=== PATIENT | male | born 1965 | race Caucasian/White ===

== ENCOUNTER 2020-05-29 18:23 | Emergency (ER) | payer MEDICARE ==
[~2020-05-29] VITALS: Ht 172.7 cm; Wt 88.5 kg
[2020-05-29] MEDS ORDERED: LISINOPRIL30 MG PO (18:37)
[2020-05-29] MEDS ORDERED: AMLODIPINE BESY10 MG PO (18:37)
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
== END 2020-05-29 20:38 | disposition home or self-care (01) ==
LOC: ED 18:23
DX: S01.01XA Laceration without foreign body of scalp, initial encounter (principal); W22.8XXA Striking against or struck by other objects, initial encounter; I10 Essential (primary) hypertension; J44.9 Chronic obstructive pulmonary disease, unspecified; F17.200 Nicotine dependence, unspecified, uncomplicated; Z88.0 Allergy status to penicillin; Z79.899 Other long term (current) drug therapy
CPT/HCPCS: 12002; 70450; 99284-25; A9270

== ENCOUNTER 2023-10-06 09:00 | Inpatient (IN) | payer MEDICARE, MEDICAID ==
[2023-10-06] VITALS (36 sets, daily range): BP systolic 146–203; BP diastolic 65–141
[~2023-10-06] VITALS: Ht 172.7 cm; Wt 84.4 kg
[~2023-10-06 09:00] MED LIST: AMLODIPINE BESY10 MG PO; LISINOPRIL30 MG PO
[2023-10-06] MEDS ORDERED: fentaNYL citrate 100 MCG/2 ML VIAL IV PRN (09:15)
[2023-10-06] MEDS ORDERED: NICARDIPINE HCL IV SCH (09:30)
[2023-10-06] MEDS ORDERED: DEXTROSE 5% IV SCH (09:30)
[2023-10-06 09:46] LABS: HEMATOCRIT 44.6 % (35.0-50.0); HEMOGLOBIN 14.5 g/dL (12.0-18.0); INR 0.94 (0.80-1.30); MCH 30.6 (27-36); MCHC 32.4 g/dl (30-36); MCV 94.5 fl (81-99); PLATELET COUNT 389 K/uL (140-440); PROTIME 12.2 Sec (11.2-14.2); RBC 4.72 M/ul (4.3-5.7)
[2023-10-06 09:48] LABS: PARTIAL THROMBOPLASTIN TIME 27.4 Sec (22.9-41.3)
[2023-10-06 09:51] LABS: ALBUMIN 3.3 g/dL (3.4-5.0); ALBUMIN/GLOBULIN RATIO 0.8 (1.1-2.4); ANION GAP 10.9 (7-21); BILIRUBIN, TOTAL 0.3 ng/dL (0.2-1.0); BUN/CREATININE RATIO 9.92 (6.0-28.6); CREATININE, SERUM 1.31 mg/dL (0.70-1.30); POTASSIUM 3.9 mmol/L (3.5-5.1); PROTEIN, TOTAL 7.4 g/dL (6.4-8.2)
[2023-10-06 09:59] LABS: EOSINOPHILS, MANUAL DIFF 1; LYMPHOCYTES, MANUAL DIFF 21; MONOCYTES, MANUAL DIFF 9; NEUTROPHILS, MANUAL DIFF 69
[2023-10-06 10:08] LABS: BILIRUBIN, URINE NEGATIVE (negative); BLOOD/HGB, URINE NEGATIVE (Negative); KETONE, URINE NEGATIVE (Negative); LEUK ESTERASE, URINE NEGATIVE (negative); NITRITE, URINE NEGATIVE (negative); PH, URINE 6.5 (5-7)
[2023-10-06] MEDS ORDERED: AMLODIPINE BESYLATE 10 MG TAB PO SCH (10:33)
[2023-10-06] MEDS ORDERED: lisinopriL 10 MG TAB PO SCH (10:33)
[2023-10-06 10:44] LABS: AMPHETAMINES, URINE POSITIVE (NEGATIVE); BARBITURATES, URINE NEGATIVE (NEGATIVE); BENZODIAZEPINE, URINE NEGATIVE (NEGATIVE); BUPRENORPHINE, URINE NEGATIVE (NEGATIVE); CANNABINOID, URINE NEGATIVE (NEGATIVE); COCAINE, URINE NEGATIVE (NEGATIVE); ECSTASY, URINE NEGATIVE (NEGATIVE); FENTANYL, URINE NEGATIVE (NEGATIVE); METHADONE, URINE NEGATIVE (NEGATIVE); OPIATES, URINE NEGATIVE (NEGATIVE); OXYCODONE, URINE NEGATIVE (NEGATIVE); PHENCYCLIDINE, URINE NEGATIVE (NEGATIVE)
--- NOTE | 2023-10-06 10:55 | NUR ---
57 YEAR OLD MALE PATIENT ADMITTED TO CCU FROM ED VIA STRETCHER UNDER DR. EDWARDS WITH DX OF HTN URGENCY. UPON ADMIT TO CCU IS AWAKE AND ALERT, COOPERATIVE,FOLLOWING COMMANDS W/O DELAY. NICARDIPINE GTT INFUSING AT 5 MG/HR. WILL TITRATE ACCORDING TO DR. EDWARDS V.O. HE WOULD LIKE THE SYSTOLIC BP AROUNG 160. PATIENT STATES [place] HAD [place]ST [place] AND WAS H[facility] AT [facility]. PATEINT ADMITS TO LAST USING METH APPROX 4 DAYS AGO. PATIENT IS ANXIOUS AND EMOTIONL AT THIS TIME. CT SCAN THAT WAS DONE EARLIER WAS NEGATIVE FOR A STROKE AT THIS ADMISSION. REPORT RECEIVED FROM ED RN. ADMISSION PROCESS STARTED.
[2023-10-06] MEDS ORDERED: LORazepam 2 MG/ML VIAL IV PRN (11:00)
[2023-10-06] MEDS ORDERED: ondansetron HCL 4 MG/2 ML VIAL IV PRN (11:00)
[2023-10-06] MEDS ORDERED: KETOROLAC TROMETHAMINE 30 MG/ML VIAL IV PRN (11:00)
--- NOTE | 2023-10-06 11:30 | NUR ---
TORADOL 30 MG IV GIVEN FOR KRUGER.
--- NOTE | 2023-10-06 11:37 | NUR ---
PT AND FAMILY REQUESTED PASTORAL CARE UPON ADMISSION. PT APPEARED ANXIOUS DID FAMILY; EXPRESSED CONCERN AND ANXIETY. LISTENED EMPATHETICALLY; PROVIDED SUPPORTIVE PRESENCE; PROVIDED ANXIETY CONTAINMENT; PROVIDED PRAYER. PT AND FAMILY EXPRESSED CATHARTIC EMOTIONS; TEARFUL BUT INDICATED MI. WILL FOLLOW NEEDED.
[2023-10-06] MEDS ORDERED: diphenhydrAMINE HCL 50 MG/ML VIAL ONE (11:52)
[2023-10-06] MEDS ORDERED: diphenhydrAMINE HCL 50 MG/ML VIAL IV ONE (12:00)
[2023-10-06] MEDS ORDERED: NICOTINE 21 MG/24 HR 1 EA TDSY TD SCH (12:00)
[2023-10-06] MEDS ORDERED: PHARMACY RENAL DOSE ADJUSTMENT 1 DOSE MISC PO SCH ×2 (12:00)
--- NOTE | 2023-10-06 12:00 | NUR ---
SEE FLOW SHEET FOR TITRATION ON NICARPINE GTT. PO MEDS (LISINOPRIL AND NORAVAC GIVEN).
--- NOTE | 2023-10-06 12:05 | NUR ---
WHENN DR. EDWARDS IN ROOM, HE GAVE ME A VERAL ORDER TO GIVEN BENADRYL 25 MG IV ONCE, THIS DONE.
--- NOTE | 2023-10-06 12:30 | NUR ---
SITTING UP IN BED FOR LUNCH.
--- NOTE | 2023-10-06 13:15 | NUR ---
NAPPING. NO DISTRESS NOTED. REMAINS ON NICARDIPINE GTT.
--- NOTE | 2023-10-06 14:33 | NUR ---
HAS BEEN VOIDING TO URINAL FREQUENTY. APPROX 150-200 ML AT A TIME. TOTAL U/O O0VER THE SINCE ADMIT TO MZB=0250. O2 VIA NC APPLIED AT 2 L, WITH SLEEP, O2 SAT<90. PATIENT HAS BEEN SLEEPING SINCE FINISHED WITH LUNCH, WAKES BREIFLY TO URINATE. NICARDIPINE GTT AT 2.5 MG/HR.
--- NOTE | 2023-10-06 15:22 | NUR ---
NICARDIPINE GTT OFF AT THIS TIME, THIS DONE PER DR. EDWARDS'S REQUEST.
--- NOTE | 2023-10-06 16:00 | NUR ---
ASSESSMENT DONE. SKIN REMAINS FLUSHED. C/O KRUGER. NICARDIPINE GTT REMAINS OFF. SEVERAL FAMILY MEMBERS ARE IN ROOM.
--- NOTE | 2023-10-06 16:20 | NUR ---
PATIENT C/O INCREASE KRUGER PAIN. DR. EDWARDS NOTIFIED. TYLENOL 650 Q 6 HRS ORDERED. WILL GIVE THIS WHEN ORDER VARIFIED.
[2023-10-06] MEDS ORDERED: ACETAMINOPHEN 325 MG TAB PO PRN (16:30)
--- NOTE | 2023-10-06 17:10 | NUR ---
MED REC COMPLETE
--- NOTE | 2023-10-06 17:30 | NUR ---
TOOK DINNER WELL. DENIES NAUSEA. WILL CONTINUE TO MONITOR BP, WILL RESTART NICARDIPINE GTT PRN.
--- NOTE | 2023-10-06 19:02 | NUR ---
DR. EDWARDS UPDATED ON PATIENT BP, DR. EDWARDS SAIND TO RESTART THE NICARDIPINE IF SYSTOIC BP > 160. CURRENT BP 157.85. PATIENT IS SLEEPING. REPORT TO NEXT SHIFT.
--- NOTE | 2023-10-06 19:30 | NUR ---
REPORT RECEIVED AND CARE ASSUMED FROM GAUDENCIO MADRIGAL. NAD NOTED VIA CONTINUOUS MONITOR AND DIRECT OBS.
--- NOTE | 2023-10-06 19:45 | NUR ---
NICARDIPINE GTT RESTARTED FOR SBP >160 PER EMAR.
--- NOTE | 2023-10-06 20:05 | NUR ---
SHIFT ASSESSMENT COMPLETE. [facility]. PT DENIES NEEDS AT THIS TIME. PT WATCHING TELEVISION AND USING PERSONAL CELL PHONE. PT VERBALIZES UNDERSTANDING TO USE CALL LIGHT WITH NEEDS. PT USING URINAL APPROPRIATELY. PT ORIENTED TO UNIT, ROOM AND POC FOR SHIFT. ALL QUESTIONS ANSWERED. NAD NOTED VIA CONTINUOUS MONITOR, DIRECT OBS AND PT STATEMENT.
--- NOTE | 2023-10-06 20:10 | NUR ---
PT REQUESTED AND PROVIDED SANDICH TRAY AND SPRITE WITH ICE. DENIES ADDITIONAL NEEDS.
--- NOTE | 2023-10-06 20:25 | NUR ---
PT EXWIFE, 2 CHILDREN AND 5 GRANDCHILDREN AT BEDSIDE TO VISIT WITH PT. PT LAUGHING AND VISITING. PT FAMILY UPDATED TO PT STATUS FOLLOWING VERBAL AUTHORIZATION FROM PT ALLOWING FOR DISCUSSING OF MEDICAL STATUS.
--- NOTE | 2023-10-06 20:30 | NUR ---
NICARDIPINE GTT INCREASED TO 5MG/HR FOR SBP >160 PER EMAR.
--- NOTE | 2023-10-06 20:53 | NUR ---
PT REQUESTED AND PROVIDED KETOROLAC AND MELATONIN PER PRN ORDERS. PT FAMILY REMAINS AT BEDSIDE. PT LAUGHING WITH GRANDKIDS. PT DENIES ADDITIONAL NEEDS. PT REMINDED TO NOT FIGHT CUFF WHEN BP IS TAKING. BED IN LOW, LOCKED POSITION CALL LIGHT IN REACH. NAD NOTED VIA DIRECT OBS.
[2023-10-06] MEDS ORDERED: MELATONIN 3 MG TAB PO PRN (21:00)
[2023-10-06] MEDS ORDERED: CHLORDIAZEPOXIDE 25 MG CAP PO SCH (21:00)
--- NOTE | 2023-10-06 21:00 | NUR ---
NICARDIPINE GTT INCREASED TO 7.5MG/HR FOR SBP>160 PER EMAR.
--- NOTE | 2023-10-06 21:04 | NUR ---
DR EDWARDS IN PT ROOM FOR PT STATUS UPDATE.
--- NOTE | 2023-10-06 21:12 | NUR ---
VERBAL ORDER RECEIVED FROM DR. EDWARDS. FOR 25 MG BENADRYL PO Q6 PRN FOR HEADACHE TO BE BE TAKEN WITH 1 INCH TOPICAL NITROPASTE Q6 PRN. ORDERS WRITTEN DOWN, READ BACK FOR VERIFICATION AND ENTERED INTO [facility]. MD STATE OK TO INCREASE NICARDAPINE GTT TO 10 AT 2200 IF NO IMPROVEMENT FOLLOWING BENADRYL AND NITROPASTE.
[2023-10-06] MEDS ORDERED: diphenhydrAMINE HCL 25 MG CAP PO PRN (21:15)
[2023-10-06] MEDS ORDERED: NITROGLYCERIN PACKET TOP PRN (21:15)
[2023-10-06] MEDS ORDERED: NICARDIPINE HCL 25 MG/10 ML ONE (21:23)
--- NOTE | 2023-10-06 22:05 | NUR ---
PT RESTING IN BED WITH EYES CLOSED. PT EASILY AWAKENED TO VOICE. PT DENIES NEEDS AT THIS TIME. PT STATES SOME DECREASE IN PAIN FROM HEADACHE FOLLOWING ADMINISTRATION OF PRN MEDS. PT VERBALIZES UNDERSTANDING TO USE CALL LIGHT WITH NEEDS. BED IN LOW, LOCKED POSITION. VSS AND NAD NOTED VIA CONTINUOUS MONITOR, DIRECT OBS AND PT STATEMENT.
--- NOTE | 2023-10-06 22:46 | NUR ---
DR EDWARDS IN UNIT FOR PT STATUS UPDATE.
--- NOTE | 2023-10-06 22:57 | NUR ---
PT PLACED ON 2L NC TO MAINTAIN O2 SAT >92%. PT SNORING WITH O2 DROPPING TO 87 ON RA. PT DENIES NEEDS AT THIS TIME.
[2023-10-07] VITALS (59 sets, daily range): BP systolic 110–194; BP diastolic 45–105
--- NOTE | 2023-10-07 00:03 | NUR ---
SHIFT ASSESSMENT COMPLETE. SEE [employer] FOR DETAILS. PT RESTING IN BED, EYES CLOSED. PT EASILY AWAKENED TO VOICE. PT DENIES NEEDS AT THIS TIME. PT STATES DECREASED HEADACHE PAIN. PT USES URINAL APPROPRIATELY. NICARDIPINE GTT INFUSING IN PATENT PIV WITHOUT INCIDENT. 2L NC IN PLACE TO MAINTAIN O2 SAT >92%. PT SNORES WHILE RESTING. BED IN LOW, LOCKED POSITION. CALL IGHT IN REACH. PERSONAL ITEMS IN REACH. PT SELF REPOSITIONING. VSS AND NAD NOTED VIA PT STATEMENT, DIRECT OBS ABD CONTINUOUS MONITOR.
--- NOTE | 2023-10-07 00:17 | NUR ---
NICARDIPINE GTT TITRATED TO 10MG/HR PER ORDERS FOR SBP >160. CURRENT BP 170/97 (115).
--- NOTE | 2023-10-07 02:13 | NUR ---
PT RESTING IN BED WITH EYES CLOSED. PT AWAKENS EASILY TO VOICE. PT DENIES NEEDS. PT DENIES PAIN. 2L NC IN PLACE. NICARDIPINE GTT INFUSING PER EMAR. CALL LIGHT IN REACH. VSS AND NAD NOTED VIA CONTINUOUS MONITOR AND DIRECT OBS.
--- NOTE | 2023-10-07 02:20 | NUR ---
NICARDIPINE GTT TITRATED TO 7.5MG/HR FROM 10MG/HR PER ORDER TO MAINTAIN SBP <160. CURRENT BP 126/87 (92). VSS AND NAD NOTED VIA CONTINUOUS MONITOR AND DIRECT OBSERVATION.
--- NOTE | 2023-10-07 03:20 | NUR ---
PT COMPLAINT OF HEADACHE. BENADRYL AND NITRO PASTE GIVEN PER EMAR. PT REQUEST SNACKS AND DRINKS. REQUEST PROVIDED. PT DENIES ADDITIONAL NEEDS.
--- NOTE | 2023-10-07 03:30 | NUR ---
NICARDIPINE GTT INCREASED TO 10MG/HR PER EMAR FOR SBP >160. BP 187/105 (126)
[2023-10-07] MEDS ORDERED: NICARDIPINE HCL 25 MG/10 ML ONE (03:44)
--- NOTE | 2023-10-07 04:09 | NUR ---
SHIFT ASSESSMENT COMPLETE. SEE [facility]. PT STATES HEADACHE PAIN IS DECREASED AFTER PRN ADMINISTRATION. PT CONSUMED SNACK AND DRINK 100%. PT DENIES ADDITIONAL NEEDS. PT USES URINAL APPROPRIATELY. CALL LIGHT AND PERSONAL ITEMS IN REACH. NAD NOTED VIA CONTINUOUS MONITOR AND PT STATEMENT. PT SELF REPOSITIONING.
[2023-10-07 05:17] LABS: HEMATOCRIT 46.5 % (35.0-50.0); HEMOGLOBIN 15.5 g/dL (12.0-18.0); MCH 30.8 (27-36); MCHC 33.3 g/dl (30-36); MCV 92.5 fl (81-99); PLATELET COUNT 387 K/uL (140-440); RBC 5.03 M/ul (4.3-5.7); RDW 14.2 (10.5-15.0)
[2023-10-07 05:26] LABS: ANION GAP 14.9 (7-21); BUN/CREATININE RATIO 17.64 (6.0-28.6); CALCIUM 9.1 mg/dL (8.5-10.1); CREATININE, SERUM 1.19 mg/dL (0.70-1.30); MAGNESIUM 1.7 mg/dL (1.8-2.4); POTASSIUM 3.9 mmol/L (3.5-5.1)
[2023-10-07 05:27] LABS: BANDS, MANUAL DIFF 8; LYMPHOCYTES, MANUAL DIFF 26; MONOCYTES, MANUAL DIFF 8; NEUTROPHILS, MANUAL DIFF 58
[2023-10-07] MEDS ORDERED: diphenhydrAMINE HCL 25 MG CAP PO ONE (06:00)
[2023-10-07] MEDS ORDERED: MAGNESIUM SULFATE 2 GM/50 ML BAG IV ONE (06:00)
--- NOTE | 2023-10-07 06:10 | NUR ---
DR EDWARDS IN UNIT FOR PT STATUS UPDATE. MD ORDERED 2GM MAGNESIUM REPLACEMENT AND ONE TIME 25MG bENADRYL PO. MD REQUEST BENADRYL NOT BE GIVEN BASED ON PT 0600 BP OF 111/45 (65). NICARDIPINE GTT DECREASED TO 7.5MG/HR PER ORDERS.
--- NOTE | 2023-10-07 06:19 | NUR ---
NICARDIPINE GTT TITRATED DOWN TO 5MG/HR PER ORDER FOR BP 110/59 (75).
--- NOTE | 2023-10-07 07:15 | NUR ---
REPORT GIVEN AND CARE ENDORSED TO DAY SHIFT RN'S. PT SITTING IN BED, REQUESTED AND PROVIDED DRINK/SNACK. VSS AND NAD NOTED VIA CONTINUOUS MONITOR AND DIRECT OBS.
--- NOTE | 2023-10-07 07:30 | NUR ---
NICARDIPINE DRIP TO OFF AND BP-127/62. PATIENT IS SLEEPING, NO DISTRESS NOTED.
--- NOTE | 2023-10-07 07:46 | EKG ---
[facility] [address] [facility] [place], [place] [address] Signed Normal sinus rhythm Minimal voltage criteria for LVH, may be normal variant ( Sokolow-Montoya ) Cannot rule out Anterior infarct , age undetermined Abnormal ECG No previous ECGs available Confirmed by EDILBERTO EDWARDS MD ([id number]) on 10/07/2023 7:46:13 AM Electronically Signed By: EDILBERTO EDWARDS 10/07/23 0746 PATIENT NAME: CHANELCLARE Electrocardiogram DATE OF : 63 PHYSICIAN: EDILBERTO EDWARDS REPORT #: [id number] REPORT IS CONFIDENTIAL AND NOT TO BE RELEASED WITHOUT AUTHORIZATION
[2023-10-07] MEDS ORDERED: THIAMINE HCL 100 MG TAB PO SCH (08:00)
[2023-10-07] MEDS ORDERED: FOLIC ACID 1 MG TAB PO SCH (08:00)
--- NOTE | 2023-10-07 08:00 | NUR ---
ASSESSMENT DONE. SITTING UP IN BED FOR BREAKFAST. C/O SLIGHT RIGHT GUM/JAW PAIN. TOLD PATIENT HE NEEDS TO TALK WITH THE DOCTOR ABOUT THIS. PATIENT SAID HE HAS BEEN HAVING THIS DISCOMFORT FOR A MONTH, SAID HE LOST TWO TEETH LAST WEEK. DENIES FUTHER PAIN. COOPERATIVE.
--- NOTE | 2023-10-07 08:15 | NUR ---
Spoke with Eugenio. He states he has been living in a camper in [place]. He recently returned to [place] and has been living at [place] [address]. He does not use any DME. His exwife is an RN and his daughter works for [employer]. They have been attempting to help him with A&D treatment and housing. Pt states his last drink was approx 2 weeks ago, except for beer and he used Meth a few days ago. He cannot drive as he license has been suspended. He was 4 children and 13 grandchildren. He states his kids help him and drive him for grocery shopping and other needs. He is interested in speaking with [facility] for his A&D use. I contact the crisis line and spoke with Yamel. A peer will visit him later today after their am huddle. Pt does not currently have pcp. [facility] Name placed on their Goggle list and chart faxed to Kvng Sharp at the clinic requesting a pcp for this pt.
[2023-10-07] MEDS ORDERED: chlordiazePOXIDE HCl 5 MG CAPSULE PO SCH (09:00)
[2023-10-07] MEDS ORDERED: PANTOPRAZOLE SODIUM 40 MG TABEC PO SCH (09:00)
[2023-10-07] MEDS ORDERED: ENOXAPARIN SODIUM 40 MG/0.4 ML SYR SUB-Q SCH (09:00)
--- NOTE | 2023-10-07 09:00 | NUR ---
DR. EDWARDS HERE TO SEE PATIENT. PLAN IS TO AMBULATE PATIENT IN HALLWAY AND INCREASE OVERALL ACTIVITY, CONTINUE TO MONITOR BP.
--- NOTE | 2023-10-07 09:10 | NUR ---
OUT OF BED, READY TO AMBULATE. C/O OF DIZZINES WITH MOVEMENT. AMBULATED IN HALLWAY. HR STAYED LESS THAN 90 WITH MOVEMENT. AFTER WALKING IN BOWMAN FOR APPROX 5 MIN, RETURNED TO ROOM AND NOW SITTING IN CHAIR.
[2023-10-07] MEDS ORDERED: NICOTINE 21 MG/24 HR 1 EA TDSY TD ONE (10:00)
[2023-10-07] MEDS ORDERED: cloNIDine HCL 0.1 MG TAB PO SCH (10:45)
--- NOTE | 2023-10-07 11:00 | NUR ---
CLONIDINE 0.1 MG PO GIVEN PER ORDERS. BACK TO BED W/O INCIDENT. PATIENT COOPERATIVE. DAUGHTER IS IN ROOM. TAKING PO W/O PROBLEMS. RESTING NOW. CALL LIGHT WITHIN REACH.
--- NOTE | 2023-10-07 11:51 | NUR ---
UM Review - 10/07/2023 Pt meets INPT stay per inpt guidelines on admission 10/06/2023. Goal length of Stay (GLOS) 2 days. MCG guidelines met for care day 2 (10/07/2023.
--- NOTE | 2023-10-07 13:40 | NUR ---
TO BR TO VOID AND EXPELL FORMED STOOL. STATES HE FEELS BETTER AFTER NAPPING.
--- NOTE | 2023-10-07 13:45 | NUR ---
AMBULATED IN UNIT FOR APPROX 7 MIN. IS STABLE ON FEET. STATES HIS HEAD FEELS LESS FUZZY NOW. FAMILY IN ROOM.
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
--- NOTE | 2023-10-07 14:06 | NUR ---
ROUNDS. PT IN MEETING. NO VISIT TODAY. PROVIDED PRAYER.
--- NOTE | 2023-10-07 15:00 | NUR ---
ROUTINE MEDICATIONS GIVEN. REMAINS ON BIPAP. CONTINUES TO SLEEP WITH BIPAP ON. NO DISTRESS NOTED. IVF INFUSING AT 100 ML/HR.
--- NOTE | 2023-10-07 17:10 | NUR ---
AWAKE AND ALERT. FOLLOWING COMMANDS. BIPAP OFF, O2 AT 2 L NC APPLIED. DENIES SHORTNESS OF BREATH, DENIES NEED FOR PAIN PAIN MEDICATION. PATHAK CATH PATENT WITH CLEAR YELLOW URINE NOTED. SCD'S ON. MARY HO CRNA. HERE TO SEE AND TALK WITH PATIENT. ABG'S DC'D. WILL CONTINUE TO MONITOR PATIENT RESP STATUS. FAMILY MEMBERS ARE IN ROOM.
--- NOTE | 2023-10-07 17:19 | NUR ---
PATIENT SITTING UP IN BED, DINNER AND FRESH ICE WATER PROVIDED. CALL LIGHT IN EASY REACH
--- NOTE | 2023-10-07 19:15 | NUR ---
REPORT RECEIVED AND CARE ASSUMED FROM GAUDENCIO MADRIGAL. PT VSS PER DIRECT OBS AND CONTINUOUS MONITOR.
--- NOTE | 2023-10-07 19:50 | NUR ---
in to provide pt with a sandwich box, no further needs
--- NOTE | 2023-10-07 20:00 | NUR ---
SHIFT ASSESSMENT COMPLETE. SEE [employer] FOR DETAILS. PT RESTING IN BED TALKING ON PERSONAL CELL PHONE. PT REQUESTED AND PROVIDED SNACKS/COCOA. PT DENIES ADDITIONAL NEEDS AT THIS TIME. PT VERBALIZES UNDERSTANDING TO USE CALL LIGHT WITH NEEDS. BED IN LOW, LOCKED POSITION. PIV PATENT AND SALINE LOCKED X2. PT SELF REPOSITIONING AND USES URINAL APPROPRIATELY. VSS AND NAD NOTED VIA DIRECT OBS, PT STATEMENT AND CONTINUOUS MONITOR.
--- NOTE | 2023-10-07 20:10 | NUR ---
pt provided hot chocolet
--- NOTE | 2023-10-07 20:30 | NUR ---
PT FAMILY IN ROOM AT BEDSIDE VISITING.
--- NOTE | 2023-10-07 21:15 | NUR ---
in to round on pt, urinal emptied, temp checked, pt provided decaf cup of coffee, no further needs at this time
--- NOTE | 2023-10-07 21:17 | NUR ---
PT REQUESTED AND PROVIDED MELATONIN TO AID WITH SLEEP PER EMAR. PT DENIES ADDITIONAL NEEDS. NAD NOTED.
--- NOTE | 2023-10-07 22:41 | NUR ---
PT RESTING IN BED, EYES CLOSED. PT EASILY AWAKENED TO VOICE. PT DENIES NEEDS AT THIS TIME. CALL LIGHT IN REACH. PT SELF REPOSITIONING. VSS AND NAD NOTED VIA PT STATEMENT AND DIRECT OBS.
--- NOTE | 2023-10-07 23:00 | NUR ---
CALL LIGHT ON, IN TO ASSIST PT WITH BED/GOWN CHANGE, PT MISSED THE URINAL, SBA TO THE CHAIR, BACK TO BED, CALL LIGHT IN REACH
[2023-10-08] VITALS (23 sets, daily range): BP systolic 127–197; BP diastolic 68–108
--- NOTE | 2023-10-08 00:26 | NUR ---
SHIFT ASSESSMENT COMPLETE. SEE [employer] FOR DETAILS. PT RESTING IN BED WITH EYES CLOSED. EASILY AWAKENED TO VOICE. PT DENIES NEEDS AT THIS TIME. VSS AND NAD NOTED VIA CONTINUOUS MONITOR AND DIRECT OBS.
--- NOTE | 2023-10-08 03:06 | NUR ---
PT RESTING IN BED WITH EYES CLOSED. PT EASILY AWAKENED TO VOICE. VSS AND NAD NOTED VIA CONTINUOUS MONITOR.
--- NOTE | 2023-10-08 04:32 | NUR ---
SHIFT ASSESSMENT COMPLETE. SEE [facility] FOR DETAILS. PT RESTING IN BED WITH EYES CLOSED. PT EASILY AWAKENED TO VOICE. PT DENIES NEEDS AT THIS TIME. VSS AND NAD NOTED.
--- NOTE | 2023-10-08 07:05 | NUR ---
REPORT GIVEN AND CARE ENDORSED TO DAYSHIFT RN'S, TRAILER RENTAL CLERK AND STUDENTS. PT VSS VIA CONTINUOUS MONITOR.
--- NOTE | 2023-10-08 07:30 | NUR ---
REPORT RECIEVED FROM JAMILA MARCANO RN. PATIENT ALERT AND ORIENTED AND RESTING IN BED AT THIS TIME. PATIENT CALLS APPROPRIATELY.
[2023-10-08] MEDS ORDERED: IBUPROFEN 600 MG TAB PO PRN (08:15)
--- NOTE | 2023-10-08 09:33 | NUR ---
PATIENT FINISHED WITH BREAKFAST AND SNACK TRAY PROVIDED. CALL LIGHT IN EASY REACH.
[2023-10-08] MEDS ORDERED: hydroCHLOROthiazide 25 MG TAB PO SCH (10:23)
[2023-10-08] MEDS ORDERED: FUROSEMIDE 40 MG/4 ML VIAL IV ONE (10:30)
--- NOTE | 2023-10-08 10:30 | NUR ---
PATIENTS ASSESSMENT COMPELTED. PATIENT IS ALERT AND ORIENTED. PATIENTS BLOOD PRESSURE CONTINEUS TO STAY ELEVATED SEE EMAR FOR MEDICATIONS ADMINISTRATION. MD AWARE OF CONTINUED PRESSURES BEING ELEVATED AND NEW ORDERS WILL BE PLACED. PATIENT HAS A GOOD APPETITE. BOWEL TONES ACTIVE. BREATH SOUNDS CLEAR. PATIUENTS NICOTINE PATCH PLACED ON LEFT SHOULDER. PATIENT REPORTS HE VISITED WITH [facility] YESTERDAY AND PLANS TO CONTINUE TREATMENT OPTIONS WITH THEM.
--- NOTE | 2023-10-08 10:42 | NUR ---
PATIENT ALERT AND ORIENTED, SITTING UP IN BED. STATES HE WAS ABLE TO SPEAK TO [facility] MEMBER YESTERDAY. VOICES MUCH APPRECIATION FOR NURSING STAFF. STATES HE IS MISSING HIS DOG AND WANTS TO SEE HER. STATES HIS DOG IS CURRENTLY WITH HIS EX . DENIES OTHER NEEDS AT THIS TIME. DC PLAN REMAINS UNCHANGED AT THIS TIME.
--- NOTE | 2023-10-08 11:00 | NUR ---
ROUNDS. PT EMOTIONALLY RESPONSIVE TO ANY KINDNESS. FACILITATED LIFE FREVIEW; PROVIDED PRAYER QUILT. PT SHARED MANNY JOURNEY; TEARFULLY EXPRESSED APPRECIATION; REQUESTED SUBSEQUENT VISIT. FOLLOW-UP TIME ALLOWS.
[2023-10-08] MEDS ORDERED: NICOTINE POLACRILEX 4 MG LOZENGE BUCCAL PRN (11:45)
[2023-10-08] MEDS ORDERED: NICOTINE POLACRILEX 2 MG GUM MM PRN (11:45)
--- NOTE | 2023-10-08 12:00 | NUR ---
LUNCH PROVIDED FOR PATIENT. PATIENT SITTING UP IN BED EATING . PATIENT ALERT AND ORIENTED. PATIENTS BLOOD PRESSURES ARE IMPROVING WITH NEW MEDICATIONS. PATIENTS FAMILY AT THE BEDSIDE AND UPDATED ON PLAN OF CARE THAT PATIENT WILL STAY THIS AFTERNOON.
--- NOTE | 2023-10-08 12:49 | NUR ---
PATIENT SITTING UP IN BED ON PERSONAL PHONE. FINISHED WITH LUNCH, VITALS AND I&OS CHARTED. CALL LIGHT IN EASY REACH
--- NOTE | 2023-10-08 13:00 | NUR ---
CALL LIGHT ANSWERED, PATIENT VISIBLY UPSET, FIGHTING WITH HIS BLANKETS AND BEDSIDE TABLE, ATTEMPING TO GET OUT OF BED. STEPHEN STATES, " I NEED TO PEE AND I REFUSE TO PEE ON MYSELF!" PATIENT THEN KICKED HIS BEDSIDE TABLE, SPILLING URING AND WATER AND HOPPED OUT OF BED WHILE TRYING TO REMOVE ANTHING CONNECTED TO HIM. PATIENT STATES "FUCK THIS PLACE AND YOU ALL, I'M OUTTA HERE." THIS WINDSURFING INSTRUCTOR ATTEMPTING TO REDIRECT PATIENT FOR SAFETY, PRIMARY RN CALLED FOR ASSISTANCE. TWO RNS IN ROOM, PATIENT ASSISTED TO BR AND THEN TO RECLINER BEDLINEN WAS REPLACED, ROOM TIDIED. PATIENT CALM AND VERY APOLOGETIC TO STAFF. PATIENT STATES HIS GOOD FRIEND JUST AND HE'S GRIEVING. PATIENT BACK TO BED, CALL LIGHT IN EASY REACH, NO OTHER NEEDS AT THIS TIME
--- NOTE | 2023-10-08 13:15 | NUR ---
THIS RN WAS CALLED IN THE ROOM. PATIENT HAD AN INCIDENT WITH BEING UPSET. PATIENT UP TO THE BATHROOM. PATIENT BACK TO BED AND BEDDING CHANGED. PATIENT APPOLIGIZED FOR HIS FRUSTRATION AND REPORTED HIS BEST FRIEND WAS BEING TAKEN OF LIFE SUPPORT AND WAS GOING TO . tHIS RN AND OTHER STAFF AT THE BEDSIDE TO PROVIDE ASSISTANCE FOR PATIENT. PATIENT CRYING AND APPOLOGIZING TO STAFF. PATIENT NOW RESTING IN BED AND PASTORAL CARE NOTIFIED OF PATIENT REQUESTING A VISIT. THIS RN SPOKE WITH PATIENT IN DEPTH TO TRY AND FOCUS ON HIS OWN CARE AND HEALING SO HE CAN BE THERE FOR HIS FRIENDS, FAMILY, AND LOVED ONES. PATIENT VERY THANKFUL FOR STAFF HELP.
--- NOTE | 2023-10-08 14:01 | NUR ---
GAUDENCIO RIVERA CALLED TO REQUEST I VISIT PT SUBSEQUENT TO HIM RECEIVING UPSETTING NEWS. PT APPEARED CALM, AND WAS ABLE TO EXPRESS SITUATION. FACILITATED STORY-TELLING; LISTENED EMPATHETICALLY; REFRAMED EXPERIENCE; PROVIDED PRAYER. PT PROCESSED EMOTION, EXPLORED HOPE, EXPRESSED GRATITUDE.
--- NOTE | 2023-10-08 15:00 | NUR ---
PATIENT SITTING IN BED WITH FAMILY AT THE BEDSIDE. PATIENT DENIES ANY NEEDS AT THIS TIME. CALL LIGHT IN REACH. PATIENT USING THE URINAL ON HIS OWN NEEDED.
--- NOTE | 2023-10-08 16:00 | NUR ---
SNACK PROVIDED. CALL LIGHT AND PERSONAL ITEMS IN EASY REACH
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
--- NOTE | 2023-10-08 19:00 | NUR ---
MD UPDATED ON PATIENTS CONCERN OF STDS. MD IN TO DO EXAM. PER MD NO SIGNS OF STD'D AND PATIENT WILL FOLLOW UP WITH HIS PRIMARY CARE PROVIDER FOR TESTING. PATIENT AGREEABLE TO THIS PLAN OF CARE. PATIENT RESTING IN BED. CALL LIGHT IN REACH AND PATIENT CALLS APPROPRIATELY.
--- NOTE | 2023-10-08 21:02 | NUR ---
PM SNACKS PROVIDED PUDDING, JELLO, CRACKERS, AND DARRIUS.
--- NOTE | 2023-10-08 21:20 | NUR ---
SBAR REPORT RECEIVED FROM NICOLE RATLIFF. PATIENT IS NOTED TO BE PLEASANT, COOPERATIVE, AND CALM. HE ENDORSED SNACKS AND RESTROOM NEEDS. OTHERWISE EXPRESSES AND ENDORSES COMFORT. SNACKS PROVIDED AND URINAL EMPTIED AND CLEANED. NICOTINE PATCH REMOVED.
--- NOTE | 2023-10-08 22:19 | NUR ---
PATIENT CLARE ENDORSES COMFORT AND IS FOUND TO BE WATCHING TV. HE DENIES ANY CURRENT NEEDS. TWO VISITORS WHO WERE AT BEDSIDE BID HIM A JHOANA.
[2023-10-09] VITALS (9 sets, daily range): BP systolic 110–166; BP diastolic 59–96
--- NOTE | 2023-10-09 05:36 | NUR ---
PATIENT CLARE HAD A RESTFUL EVENING. BLOOD PRESSURE REMAINED STABLE AND WITHIN ORDERED PARAMETERS. NEURO- ALERT AND ORIENTED X 4. ABLE TO MOVE ALL EXTREMITIES, AMBULATE 1 P ASSIST, PERRL, NO COMPLAINTS OF PAIN, STRENGTH 5/5 RESP- ROOM AIR, WDL, PER PATIENT REQUEST AND COMFORT PULSEOX WAS NOT USED, BREATH SOUNDS CLEAR CARDIAC- BP WITHIN ORDERED PARAMETERS, NO EDEMA, AFEBRILE GI/- VOIDS IN URINAL, PASSING FLATUS INT-SEE ASSESSMENT
--- NOTE | 2023-10-09 07:30 | NUR ---
REPORT RECIEVED FROM HOME IMPROVEMENT ADVISOR RN. PATIENT RESTING IN BED ON MONITOR. PATIENTS VITALS STABLE. PATIENT ALERT AND ORIENTED AND DENIES ANY NEEDS AT THIS TIME.
[2023-10-09] MEDS ORDERED: AMLODIPINE BESY10 MG PO (09:20)
[2023-10-09] MEDS ORDERED: CLONIDINE HCL0.1 MG PO (09:20)
[2023-10-09] MEDS ORDERED: LISINOPRIL10 MG PO (09:21)
[2023-10-09] MEDS ORDERED: HYDROCHLOROTHIA25 MG PO (09:21)
--- NOTE | 2023-10-09 09:21 | NUR ---
PATIENT AMBULATING HALLS WITH ANGELICA SHIPMAN. BACK TO ROOM AND DRESSING IN PERSONAL CLOTHING.
[2023-10-09] MEDS ORDERED: VITAMIN B-1100 MG PO (09:22)
[2023-10-09] MEDS ORDERED: FOLIC ACID1 MG PO (09:22)
--- NOTE | 2023-10-09 10:00 | NUR ---
PATIENT UP AND WALKED THE BOWMAN WITH STUDENT RN AND TOLERATED WELL. PATIENTS ALERT AND ORIENTED AND WANTING TO DC HOME TODAY. PER MD PATIENT SHOULD DC TODAY IF BLOOD PRESSURES REMAIN BELOW 160 SYSTOLIC.
--- NOTE | 2023-10-09 10:15 | NUR ---
PATIENT UP AND DRESSED AND IVS DCD BY STUDENT RN. PHARMACY AND THIS RN IN TO DISCUSS PLAN OF CARE FOR DISCHARGE. PATIENT GATHERED BELONGIGNS AND WAS WHEELED TO THE FRONT OF THE HOSPITAL VIA WHEELCHAIR FOR DISCHARGE. PER PATIENT REQUEST CALLED PATIENTS DAUGHTER LIBORIO TO UPDATE ON PATIENTS NEW PRESCRIPTIOS AD PLAN OF CARE. NO OTHER QUESTIONS AT THIS TIME. LIBORIO MARIE WHEELED PATIENT TO THE FRONT.
== END 2023-10-09 10:10 | disposition home or self-care (01) | DRG 305 ==
LOC: ED 09:00 → CCU 10:32
PROVIDERS: Emergency Medicine; ADMIT Internal Medicine; ATTEND Internal Medicine
DX: I16.0 Hypertensive urgency (principal); I10 Essential (primary) hypertension; J44.9 Chronic obstructive pulmonary disease, unspecified; F17.210 Nicotine dependence, cigarettes, uncomplicated; D72.829 Elevated white blood cell count, unspecified; F19.10 Other psychoactive substance abuse, uncomplicated; Z98.890 Other specified postprocedural states; Z91.148 Patient's other noncompliance with medication regimen for other reason; Z90.49 Acquired absence of other specified parts of digestive tract; Z90.81 Acquired absence of spleen; Z88.0 Allergy status to penicillin; Z79.899 Other long term (current) drug therapy
CPT/HCPCS: 36415; 70450; 70496; 70498; 71045; 80048; 80053; 80307; 81003; 83735; 84484; 85025; 85610; 85730; 93005; 93010; 96375; 99285-25; 99406; A9270; J1200; J1650; J1885; J1940; J3010; J3475; J7060; Q9967

== ENCOUNTER 2024-07-04 08:14 | Inpatient (IN) | payer MEDICARE, MEDICAID ==
[~2024-07-04] VITALS: Ht 172.7 cm; Wt 85.0 kg
[2024-07-04] VITALS (18 sets, daily range): BP systolic 119–199; BP diastolic 7–102
[~2024-07-04 08:14] MED LIST changes: +CLONIDINE HCL0.1 MG PO; +FOLIC ACID1 MG PO; +HYDROCHLOROTHIA25 MG PO; +LISINOPRIL10 MG PO; +VITAMIN B-1100 MG PO
[2024-07-04] MEDS ORDERED: METOPROLOL TARTRATE 5 MG/5 ML VIAL IV ONE (08:45)
[2024-07-04] MEDS ORDERED: hydrALAZINE HCL 20 MG/ML VIAL IV ONE (08:45)
[2024-07-04 08:47] LABS: HEMATOCRIT 45.2 % (35.0-50.0); HEMOGLOBIN 15.2 g/dL (12.0-18.0); MCH 31.6 (27-36); MCHC 33.6 g/dl (30-36); MCV 94.1 fl (81-99); PLATELET COUNT 371 K/uL (140-440); RDW 14.8 (10.5-15.0)
[2024-07-04 08:56] LABS: INR 0.96 (0.80-1.30); PROTIME 12.4 Sec (11.2-14.2)
[2024-07-04 08:58] LABS: PARTIAL THROMBOPLASTIN TIME 27.6 Sec (22.9-41.3)
[2024-07-04 09:05] LABS: BANDS, MANUAL DIFF 6; BASOPHILS, MANUAL DIFF 1; EOSINOPHILS, MANUAL DIFF 1; LYMPHOCYTES, MANUAL DIFF 24; MONOCYTES, MANUAL DIFF 5; NEUTROPHILS, MANUAL DIFF 63
[2024-07-04 09:11] LABS: ALBUMIN 3.7 g/dL (3.4-5.0); ALBUMIN/GLOBULIN RATIO 0.9 (1.1-2.4); ANION GAP 12.3 (7-21); BILIRUBIN, TOTAL 0.3 ng/dL (0.2-1.0); BUN/CREATININE RATIO 12.97 (6.0-28.6); CALCIUM 9.2 mg/dL (8.5-10.1); CREATININE, SERUM 1.31 mg/dL (0.70-1.30); POTASSIUM 4.3 mmol/L (3.5-5.1); PROTEIN, TOTAL 7.8 g/dL (6.4-8.2)
[2024-07-04] MEDS ORDERED: HYDROmorphone HCL 1 MG/ML SYR IV ONE ×2 (09:45→11:15)
[2024-07-04] MEDS ORDERED: ondansetron HCL 4 MG/2 ML VIAL IV ONE (09:45)
[2024-07-04] MEDS ORDERED: niCARdipine HCL 50 MG in DEXTROSE 5% 250 ML IV SCH (11:15)
[2024-07-04] MEDS ORDERED: AMOXICILLIN/CLAVULANATE K 875 MG TAB PO ONE (11:15)
[2024-07-04] MEDS ORDERED: ASPIRIN 81 MG CHEW PO ONE (11:30)
[2024-07-04] MEDS ORDERED: NICOTINE 21 MG/24 HR 1 EA TDSY TD SCH (12:31)
[2024-07-04] MEDS ORDERED: metroNIDAZOLE 250 MG TAB PO SCH (12:45)
[2024-07-04] MEDS ORDERED: lisinopriL 20 MG TAB PO SCH (12:45)
[2024-07-04] MEDS ORDERED: levoFLOXacin 750 MG TAB PO SCH (12:45)
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
[2024-07-04 13:22] LABS: BILIRUBIN, URINE NEGATIVE (negative); BLOOD/HGB, URINE SMALL (Negative); KETONE, URINE NEGATIVE (Negative); LEUK ESTERASE, URINE NEGATIVE (negative); NITRITE, URINE NEGATIVE (negative); PH, URINE 6.5 (5-7)
[2024-07-04 13:31] LABS: CASTS, URINE NONE SEEN \\lpf; CRYSTALS, URINE NONE SEEN (0-1+); EPITHELIAL CELLS, URINE SQUAMOUS 1+ /lpf (0-1+)
[2024-07-04 13:32] LABS: BACTERIA, URINE NONE SEEN /hpf (negative); COLLECTION TYPE, URINE CLEAN CATCH; REFLEX CULTURE, URINE No (No)
[2024-07-04 14:00] LABS: AMPHETAMINES, URINE POSITIVE (NEGATIVE); BARBITURATES, URINE NEGATIVE (NEGATIVE); BENZODIAZEPINE, URINE NEGATIVE (NEGATIVE); BUPRENORPHINE, URINE NEGATIVE (NEGATIVE); CANNABINOID, URINE POSITIVE (NEGATIVE); COCAINE, URINE NEGATIVE (NEGATIVE); ECSTASY, URINE NEGATIVE (NEGATIVE); FENTANYL, URINE NEGATIVE (NEGATIVE); METHADONE, URINE NEGATIVE (NEGATIVE); OPIATES, URINE NEGATIVE (NEGATIVE); OXYCODONE, URINE NEGATIVE (NEGATIVE); PHENCYCLIDINE, URINE NEGATIVE (NEGATIVE)
--- NOTE | 2024-07-04 14:35 | NUR ---
RESTING NOW. NICARDIPINE GTT AT 5 MG/HR.
[2024-07-04] MEDS ORDERED: AMLODIPINE BES2.5 MG PO (15:54)
[2024-07-04] MEDS ORDERED: METOPROLOL TART25 MG PO (15:55)
[2024-07-04] MEDS ORDERED: ATORVASTATIN CA80 MG PO (15:55)
[2024-07-04] MEDS ORDERED: LISINOPRIL20 MG PO (15:55)
--- NOTE | 2024-07-04 15:55 | NUR ---
MED REC COMPLETE
[2024-07-04] MEDS ORDERED: ACETAMINOPHEN 500 MG TAB PO PRN (16:00)
--- NOTE | 2024-07-04 16:00 | NUR ---
ASSESSMENT DONE. REMAINS ON NICARPIDINE GTT. C/O KRUGER AND MOUTH PAIN. RIGHT CHEEK IS SLIGHTLY SWOLLEN. FACE FLUSHED. DENIES NAUSEA. HAS BEEN USING URINAL, VOIDING SMALL AMOUNTS AT A TIME. C/O SLIGHT BURNING WITH URINATION. BP Q 15 MIN. EATING SNACK.
--- NOTE | 2024-07-04 16:15 | NUR ---
TYLENOL 500 MG PO GIVEN FOR KRUGER AND MOUTH PAIN. COOPERATIVE.
[2024-07-04] MEDS ORDERED: FLU VACC TS2024-25(6MOS UP)/PF 1 EACH SYR IM SCH (16:30)
[2024-07-04] MEDS ORDERED: TRAMADOL HCL 50 MG TAB PO PRN (17:00)
--- NOTE | 2024-07-04 17:30 | NUR ---
NICARDIPINE GTT GTT OFF. TARGET BP 160-180 SYSTOLIC. BP-149/84. TOOK DINNER WELL. STATES HE FEELS BETTER THAN HE DID EARLIER.
--- NOTE | 2024-07-04 19:15 | NUR ---
RECEIVED REPORT FROM DAY SHIFT RN. PATIENT IS RESTING IN BED WITH EYES CLOSED, 18. CALL LIGHT IN REACH.
--- NOTE | 2024-07-04 19:21 | EKG ---
[facility] [address] [place] [address] Signed Sinus rhythm with short NC with premature atrial complexes in a pattern of bigeminy Minimal voltage criteria for LVH, may be normal variant ( Sokolow-Montoya ) Nonspecific ST abnormality Abnormal ECG When compared with ECG of 06-OCT-2023 09:44, premature atrial complexes are now present Confirmed by Miguel Angel Crowe MD ([id number]) on 07/04/2024 7:21:19 PM Electronically Signed By: MIGUEL ANGEL CROWE MD 07/04/241920 PATIENT NAME: CLARE BUCHANAN Electrocardiogram DATE OF : 63 PHYSICIAN: MIGUEL ANGEL CROWE MD REPORT #: [id number] REPORT IS CONFIDENTIAL AND NOT TO BE RELEASED WITHOUT AUTHORIZATION
--- NOTE | 2024-07-04 19:30 | NUR ---
REPORT TO NEXT SHIFT PATIENT SLEEPING. REMAINS OFF NICARDIPINE. SLEEPING NO DISTRESS NOTED. FACE REMAINS FLUSHED.
[2024-07-04] MEDS ORDERED: METOPROLOL TARTRATE 25 MG TAB PO SCH (21:00)
--- NOTE | 2024-07-04 21:10 | NUR ---
PATIENTS ASSESMENT COMPLETED. PATIENTS URINAL EMPTIED. PATIENTS URINE IS CONCENTRATED. INTAKE AND OUTPUT RECORDED. PATIENT REPORTS 7/10 PAIN IN HIS "MOUTH", PRN PAIN MEDICATION GIVEN PER ORDER. PATIENT DENIES ANY SOB. PATIENT IS AAOX4. PATIENTS OM MEDS GIVEN PER ORDER. PATIENT PROVIDED FRESH ICE WATER AND SEVEN UP. PATIENTS IVS X2 SL PER ORDER. PATIENT DENIES ANY FURTHER NEEDS. CALL LIGHT IN REACH.
--- NOTE | 2024-07-04 21:59 | NUR ---
PATIENT IS RESTING IN BED WATCHING TV. PATIENT DENIES ANY NEEDS. CALL LIGHT IN REACH. BED ALARM ON FOR SAFETY.
[2024-07-05] VITALS (34 sets, daily range): BP systolic 129–189; BP diastolic 66–111
--- NOTE | 2024-07-05 00:16 | NUR ---
PATIENT IS RESTING IN BED WITH EYES CLOSED, RR 15/ CALL LIGHT AND BELONGINGS ARE WITHIN REACH.
--- NOTE | 2024-07-05 01:34 | NUR ---
PATIENTS BED ALARM ALERTING STAFF. PATIENT STANDING UP AT BEDSIDE AND IS NOTED TO BE UPSET. THIS RN ASSISTED PATIENT WITH HEART MONITOR CORDS AND BP CORD. PATIENT STATED "SO MANY FUCKING CORDS". REASSURED PATIENT THE CORDS ARE TO HELP MONITOR HIS HEART AND BLOOD PRESSURE. PATIENT ABLE TO VOID. PATIENT BACK IN BED. PATIENT APOLOGIZING REPEATEDLY TO THIS RN. PATIENT EDUCATED TO CALL AND THIS RN CAN ASSISTED WITH CORDS SO HE CAN STAND AND VOID IN URINAL. PATIENT VERBALIZED UNDERSTANDING. PATIENT PROVIDED FRESH ICE WATER. PATIENT DENIES ANY FURTHER NEEDS. CALL LIGHT IN REACH. BED ALARM ON FOR SAFETY.
--- NOTE | 2024-07-05 03:12 | NUR ---
PATIENTS HR AND BP ELEVATED. THIS RN IN TO ROUND ON PATIENT. PATIENT USING URINAL. PATIENT REPORTS 10/10 PAIN ON THE RIGHT SIDE OF HIS MOUTH, PRN PAIN MEDICATION GIVEN PER ORDER. PATIENT REPOSITIONED SELF IN BED. PATIENTS BP CUFF REPOSITIONED AND REPEATED. PATIENTS BP IMPROVED. PATIENT DENIES ANY FURTHER NEEDS. CALL LIGHT IN REACH. BED ALARM ON FOR SAFETY.
--- NOTE | 2024-07-05 04:09 | NUR ---
PATIENT IS RESTING IN BED WITH EYES CLOSED, RR17. CALL LIGHT IN REACH. BED ALARM ON FOR SAFETY.
--- NOTE | 2024-07-05 04:36 | NUR ---
BP cuff readjusted. Pt states 7 oral pain, declines tylenol as it "makes his stomach upset", would like to rest at this time. 120 ml yellow urine dumped from urinal. No further needs at this time
--- NOTE | 2024-07-05 05:20 | NUR ---
PATIENTS BP ELEVATED. PATIENT PLACED ON NICARDIPINE DRIP PER ORDER-SEE EMAR AND FLOW SHEET. PATIENT IS RESTING IN BED. PATIENT DENIES ANY PAIN OR SOB. PATIENT PROVIDED SNCAK PER ORDER. PATIENT DENIES ANY FURTHER NEEDS. CALL LIGHT IN REACH. LAB IN ROOM. BED ALARM ON FOR SAFETY.
[2024-07-05 05:32] LABS: HEMATOCRIT 44.5 % (35.0-50.0); HEMOGLOBIN 14.6 g/dL (12.0-18.0); MCHC 32.8 g/dl (30-36); MCV 94.6 fl (81-99); PLATELET COUNT 351 K/uL (140-440); RDW 14.7 (10.5-15.0)
[2024-07-05 05:43] LABS: ANION GAP 12.2 (7-21); BUN/CREATININE RATIO 15.17 (6.0-28.6); CALCIUM 8.9 mg/dL (8.5-10.1); CREATININE, SERUM 1.12 mg/dL (0.70-1.30); MAGNESIUM 1.9 mg/dL (1.8-2.4); POTASSIUM 4.2 mmol/L (3.5-5.1)
[2024-07-05 05:46] LABS: BANDS, MANUAL DIFF 1; BASOPHILS, MANUAL DIFF 2; EOSINOPHILS, MANUAL DIFF 1; LYMPHOCYTES, MANUAL DIFF 21; MONOCYTES, MANUAL DIFF 8; NEUTROPHILS, MANUAL DIFF 67
--- NOTE | 2024-07-05 05:58 | NUR ---
PATIENTS BP CONTINUES TO BED ELEVATED. NICARDIPINE DRIP TITRATED PER ORDER-SEE EMAR AND FLOWSHEET. PATIENT IS RESTING IN BED WITH EYES CLOSED, RR 19. CALL LIGHT IN REACH. BED ALARM ON FOR SAFETY. NAD NOTED.
--- NOTE | 2024-07-05 06:38 | NUR ---
PATIENTS BP CONTINUES TO BED ELEVATED. NICARDIPINE DRIP TITRATED PER ORDER-SEE EMAR AND FLOWSHEET. PATIENT IS RESTING IN BED WITH EYES CLOSED, RR 21. CALL LIGHT IN REACH. BED ALARM ON FOR SAFETY. NAD NOTED.
--- NOTE | 2024-07-05 07:30 | NUR ---
REPORT RECEIVED. PATIENT IS AWAKE IN BED WATCHING TV. NICARDIPINE GTT TO MG/HR. BP-149/75 (95).
--- NOTE | 2024-07-05 07:58 | NUR ---
UR CLINICAL REVIEW: 2 MN FOR VERSALUS-MEET INPATIENT CRITERIA MEDICARE INPT 07/04/24 @ 1232 ORDER MATCHES REG NO AUTH REQUIRED PER MEDICARE GUIDELINES DISCHARGE DISPOSITION PENDING FURTHER EVALS. ANTICIPATED IN 1-2 DAYS.
--- NOTE | 2024-07-05 08:00 | NUR ---
AWAKE, ASSESSMENT DONE. DENIES NEED FOR PAIN MED. REMAINS ON NICARDIPINE GTT. WILL CONTINUE TO TITRATE GTT AT TOLERATED. COOPERATIVE SITTING UP IN BED FOR BREAKFAST. TALKED WITH PATIENT ABOUT POC FOR THE DAY, INDICATES UNDERSTANDING.
[2024-07-05] MEDS ORDERED: METOPROLOL TARTRATE 25 MG TAB PO SCH (09:00)
[2024-07-05] MEDS ORDERED: AMLODIPINE BESYLATE 5 MG TAB PO SCH (09:00)
[2024-07-05] MEDS ORDERED: ENOXAPARIN SODIUM 40 MG/0.4 ML SYR SUB-Q SCH (09:00)
--- NOTE | 2024-07-05 09:18 | NUR ---
SPOKE WITH ELVA IN ADMITTING TO REQUEST A REVIEW IN PATIENT INSURANCE TO EVALUATE HIS ABILITY TO QUALIFY FOR MEDICAID FOR DENTAL COVERAGE.
--- NOTE | 2024-07-05 09:33 | NUR ---
ALERT AND ORIENTED. DEMOGRAPHICS VERIFIED WITH PATIENT. STATES HE IS CURRENTLY LIVING IN HIS CAR BUT HAS BEEN WORKING ON GETTING HOUSING SET UP PRIOR TO ADMISSION TO FACILITY. HE GETS $1400/MONTH IN SOCIAL SECURITY BENEFITS. [facility] HE HAS NO DENTAL INSURANCE WHICH HAS BEEN CAUSING AN ISSUE FOR HIM WITH HIS POOR DENTITIAN. HE HAS NO PHONE. PATIENT ALSO HAS NO PCP AND WOULD LIKE A PCP ESTABLISHED IN [place]. ATTEMPT TO CONTACT [place] [facility], THEY ARE NOT ABLE TO ACCEPT MEDICARE PATIENTS AT THIS TIME. ELVA IN TO REVIEW MEDICAID ELIGIBILITY AT THIS TIME. PATIENT DRIVES WITHOUT DIFFICULTY. AWARE OF WARMING STATION IN [place] [employer]. DISCUSSED WITH PATIENT LUNCHES AT [employer] AND [facility] HE HAS BEEN INFORMED HE MAKES TOO MUCH MONEY TO QUALIFY FOR SNAP. STATES HE HAS NO NEED FOR RESOURCES OTHER THAN DENTIST/POTENTIAL DENTAL INSURANCE AND A PRIMARY CARE PROVIDER. PLANS TO RETURN TO HIS CAR UNTIL HE HAS A PLACE TO LIVE. STATES HE DOES HAVE FAMILY IN TOWN HE CAN REACH OUT TO IF NEEDED.
--- NOTE | 2024-07-05 10:00 | NUR ---
PHYSICAL THERAPY WORKED WITH PATIENT. SEE PT NOTE. STEPHEN USED CANE WITH AMBULATION. TOLERATED FAIR. BACK TO BED W/O INCIDENT. DENIES PROBLEMS.
--- NOTE | 2024-07-05 10:52 | NUR ---
VISITED DURING SPIRITUAL CARE ROUNDS. PT APPEARED TO BE SLEEPING. DID NOT DISTURB. PROVIDED PRAYER.
[2024-07-05] MEDS ORDERED: PHARMACY RENAL DOSE ADJUSTMENT 1 DOSE MISC PO SCH (12:00)
--- NOTE | 2024-07-05 12:00 | NUR ---
ASSESSMENT UNCHANGED. SITTING UP IN BED FOR LUNCH. HAS BEEN VOIDING SMALL AMOUNT OF URINE TO URINAL FREQUENTLY.
--- NOTE | 2024-07-05 13:20 | NUR ---
PHONE NUMBER PROVIDED TO PATIENT FOR [facility] DEPT OF AGING AND DISABILITY TO TRY TO GET MORE MEDICAID COVERAGE IF POSSIBLE. CURRENTLY HE IS ON THE PHONE WITH [facility] OFFIC.
--- NOTE | 2024-07-05 15:50 | NUR ---
CALLED [facility] TO ESTABLISH PCP, THEY WILL CALL BACK AFTER SPEAKING WITH PROVIDER.
--- NOTE | 2024-07-05 16:41 | NUR ---
SPOKE WITH JACQUI AT [facility]. PATIENT WILL ESTABLISH PCP WITH MELVINA BHATT. HIS APPOINTMENT IS SCHEDULED FOR 07/15/24 AT 10:20 AM.
--- NOTE | 2024-07-05 17:00 | NUR ---
AMBULATED TO BR, USING CANE. MOVING LEFT LEG BETTER. HAD FORMED STOOL, TO CHAIR OF DINNER.
--- NOTE | 2024-07-05 17:30 | NUR ---
TOOK DINNER WELL. BACK TO BED. DENIES NEED FOR PAIN MED. HAS BEEN COOPERATIVE ALL DAY. DOES HAVE MILD SHORTNESS OF BREATH WITH EXERTION. PATIENT SAYS HE GETS SHORT OF BREATH AT HOME, DUE TO COPD.
--- NOTE | 2024-07-05 19:15 | NUR ---
RECEIVED RPEORT FROM DAY SHIFT RN. PATIENT IS RESTING IN BED WATCHING TV. PATIENT PROVIDED SNACK. PATIENT DENIES ANY NEEDS. CALL LIGHT IN REACH.
--- NOTE | 2024-07-05 20:05 | NUR ---
REPORT GIVEN TO NORBERT RATLIFF. PATIENT MOVED TO ROOM 113 ON THE MEDICAL FLOOR. PATIENTS STUFF MOVED TO NEW ROOM.
--- NOTE | 2024-07-05 20:25 | NUR ---
REPORT RECEIVED FROM CCU RN. PT TX TO ROOM 113 VIA BED. PT ALERT AND ORIENTED. VS OBTAINED. PT REPORTS SLIGHT HEADACHE. WISHES TO WAIT ON PRN FOR PAIN. NO FURTHER NEEDS AT THIS TIME. CALL LIGHT IN REACH. WHITE BOARD UPDATED.
--- NOTE | 2024-07-05 20:50 | NUR ---
EVENING ASSESSMENT COMPLETE. SCHEDULED MEDS ADMIN PER EMAR. NO C/O PAIN OR NAUSEA AT THIS TIME. LEFT SIDE WEAKNESS NOTED. PT REPORTS CHRONIC FROM PREVIOUS STROKE. URINAL EMPTIED. PUDDING PROVIDED PER REQUEST. PT DENIES QUESTIONS OR CONCERNS. CALL LIGHT IN REACH.
[2024-07-05] MEDS ORDERED: ATORVASTATIN 40 MG TAB PO SCH (21:00)
--- NOTE | 2024-07-05 22:06 | NUR ---
REPORT RECIEVED FROM NORBERT RATLIFF. THIS RN ASSUMING CARE OF PATIENT. PATIENT RESTING IN BED WITH EYES CLOSED. RESPIRATIONS EVEN AND UNLABORED. CALL LIGHT IN REACH.
--- NOTE | 2024-07-05 22:34 | NUR ---
CALL LIGHT ANSWERED. PATIENT REQUESTING PRN MEDICATION. MEDICATION ADMINSITERD PER PATIENT REQUEST. PATIENT HAS NO FURTHER NEEDS. CALL LIGHT IN REACH.
[2024-07-06] VITALS (8 sets, daily range): BP systolic 142–178; BP diastolic 67–89
--- NOTE | 2024-07-06 01:04 | NUR ---
PATIENT RESTING IN BED WITH EYES CLOSED. RESPIRATIONS EVEN AND UNLABORED. CALL LIGHT IN REACH.
--- NOTE | 2024-07-06 02:33 | NUR ---
PATIENT RESTING IN BED ON BACK WITH EYES CLOSED. RESPIRATIONS EVEN AND UNLABORED. CALL LIGHT IN REACH.
[2024-07-06 05:32] LABS: BASOPHILS 0.8 % (0-2); EOSINOPHILS 2.7 % (0-6); HEMATOCRIT 42.5 % (35.0-50.0); HEMOGLOBIN 14.4 g/dL (12.0-18.0); LYMPHOCYTES 27.6 % (24-44); MCH 31.7 (27-36); MCHC 33.8 g/dl (30-36); MCV 93.7 fl (81-99); MONOCYTES 12.5 % (0-12); NEUTROPHILS 56.4 % (39-80); PLATELET COUNT 356 K/uL (140-440); RBC 4.54 M/ul (4.3-5.7); RDW 14.8 (10.5-15.0)
[2024-07-06 05:44] LABS: ANION GAP 11.5 (7-21); BUN/CREATININE RATIO 18.79 (6.0-28.6); CALCIUM 8.9 mg/dL (8.5-10.1); CREATININE, SERUM 1.33 mg/dL (0.70-1.30); MAGNESIUM 1.8 mg/dL (1.8-2.4); POTASSIUM 4.5 mmol/L (3.5-5.1)
--- NOTE | 2024-07-06 07:47 | NUR ---
ASSESSMENT COMPLETE. PT RESTING IN BED WATCHING TV WITH CALL LIGHT WITHIN REACH. PT C/O PAIN TO R) UPPER TEETH/JAW, STATES IS A 3 AND IS TOLERABLE AT THIS TIME. REMINDED PT TO CALL FOR ASSISTANCE AND USE CANE WHEN GETTING UP. NO REQUESTS AT THIS TIME.
--- NOTE | 2024-07-06 08:12 | NUR ---
PATIENT IN BED AT THIS TIME. CALL LIGHT WITHIN REACH, NO FURTHER NEEDS AT THIS TIME.
--- NOTE | 2024-07-06 08:30 | NUR ---
Pt was discussed in 8:[address] Crowe. We discussed there are dental surgeons that operate at the hospital on Thursday. He was given the phone number and will contact Dr. Mcfarland to consult on this pt.
[2024-07-06] MEDS ORDERED: AMLODIPINE BESYLATE 10 MG TAB PO SCH (09:00)
--- NOTE | 2024-07-06 09:30 | NUR ---
SUSAN IN TO SEE PT, NOTIFIED OF PT'S PULSE 54, ORDERED TO HOLD AM DOSE OF METOPROLOL.
--- NOTE | 2024-07-06 10:00 | NUR ---
Notified by Dr. Crowe he was unable to reach Dr. Mcfarland and was told by his staff, Dr has a full day. She will leave a message for him, but does not feel he could see this pt. I called Alva Ca, risk management manager of the OR and she does confirm Dr. Mcfarland does surgeries on Thursday. She states she will call their office and speak with them.
--- NOTE | 2024-07-06 10:27 | NUR ---
PATIENT IN BED RESTING WITH EYES CLOSED. VITALS AND I&O'S DONE AND CHARTED. CALL LIGHT IN REACH. NO FURTHER NEEDS AT THIS TIME
--- NOTE | 2024-07-06 11:51 | NUR ---
PT SITTING UP IN CHAIR WITH LEGS ELEVATED WATCHING TV. CALL LIGHT WITHIN REACH, NO REQUESTS AT THIS TIME.
--- NOTE | 2024-07-06 13:00 | NUR ---
I was notified by Alva she was able to reach the office and Dr. Mcfarland has agreed to see this pt around 4 pm today. He did states he is not set up to bill Medicare. I contacted Shyanne Claros from Admin and she discussed we could possibly pay for an extraction out of [facility]. I contacted Dr. Crowe, it is not clear the number of teeth that would need to be emergently extracted to prevent this pt having a new infection and returning to the hospital. I will speak with Dr. Mcfarland and get his thoughts on this when he arrives. I did speak with his switchboard receptionist, Irish, she requests I send the chart notes. Chart faxed to [phone] for to review.
--- NOTE | 2024-07-06 13:24 | NUR ---
PT AMBULATED TO RESTROOM WITH SBA AND CANE, TOLERATED WELL. NO REQUESTS AT THIS TIME.
--- NOTE | 2024-07-06 14:03 | NUR ---
Spoke with Eugenio. We discussed his need for dental insurance. We looked up dental plans on the net. Some are as low as $9. [address] Mcfarland will visit him today for a consult. I can ask if he has a dental insurance they recommend. I also updated Eugenio I called [facility], Aging and Disability and pt is over income and does not qualify for Medicaid Medical Insurance which would cover dental.
[2024-07-06] MEDS ORDERED: hydroCHLOROthiazide 25 MG TAB PO SCH (14:15)
--- NOTE | 2024-07-06 15:20 | NUR ---
PATIENT IN CHAIR AT THIS TIME. BLADE WORKER CHARTED PATIENTS VITALS AND I&O'S. BLADE WORKER SET PATIENT UP FOR SHOWER, PATIENT IS ABLE TO INDEPENDENTLY SHOWER. CALL LIGHT WITHIN REACH, NO FURTHER NEEDS AT THIS TIME.
--- NOTE | 2024-07-06 15:21 | NUR ---
PATIENT UP TO SHOWER, SBA/IND IN SHOWER. LINENS CHANGED. PATIENT NOW BACK TO BED. COFFEE GIVEN. CALL LIGHT IN REACH. NO FURTHER NEEDS AT THIS TIME.
--- NOTE | 2024-07-06 15:29 | NUR ---
PT RESTING IN BED WATCHING TV, DENIES PAIN AND NO REQUESTS. CALL LIGHT WITHIN REACH.
--- NOTE | 2024-07-06 15:50 | NUR ---
Notified Dr. Mcfarland is in with Eugenio. I texted Dr. Crowe to let him know Dr. Mcfarland is in the room. To room and spoke with Dr. He feels pt most likely will need to have 4 teeth extracted. This was discussed with pt and he feels he would tolerate having dental extractions in the room. Pt is very appreciative of Dr. Mcfarland visiting him. Pt does express concern how he will pay Dr. Mcfarland. I discussed with pt, I don't think there will be a bill above his Medicare. I spoke with Dr. Mcfarland out of the room and updated it has been discussed with management to pay for his services through [facility]. I just need to know the cost of the teeth extraction and the number of teeth. Also if there will be a charge for xrays. Alva from Or arrived and Dr. Mcfarland gave her a list of supplies he will bring and the dental tray he will need from the OR. He plans on returning tomorrow around 4 pm to complete extractions in the room. He asks I call the office for the maradiaga for a dental extraction in the room. Dr Crowe arrived and they discussed Dr. davies. I returned to the room and clarified with the pt extractions will be completed in the room. He again is stating this is not an issues. He is very appreciative for any assistance. Will fu with Dr. Mcfarland's office tomorrow.
--- NOTE | 2024-07-06 16:00 | NUR ---
DR MAURICE IN TO SEE VISIT AND DISCUSS POC
--- NOTE | 2024-07-06 16:02 | NUR ---
PATIENT ADMITTED WITH A DENTAL INFECTION, CHEWING/SWALLOWING PROBLEM NOTED ON ADMISSION ASSESSMENT. VISITED WITH PATIENT THIS MORNING. HE HAS A GOOD APPETITE AND IS EATING 100% OF HIS MEALS. HE LIKES MILK, DIDN'T DRINK THE COFFEE THIS MORNING. CURRENT DIET ORDER IS EASY TO CHEW WITH NO OTHER DIET RESTRICTIONS. HE IS FEELING BETTER TODAY. POSSIBLY WILL HAVE MULTIPLE TOOTH EXTRACTIONS ON THURSDAY WHILE HERE. WILL CONTINUE TO MONITOR THAT PATIENT IS EATING 75-100% OF MEALS WHILE HERE. RD WILL FOLLOW UP IN 7 DAYS UNLESS NEED TO INTERVENE EARLIER.
--- NOTE | 2024-07-06 17:36 | NUR ---
PT SITTING UP IN BED EATING DINNER, CALL LIGHT WITHIN REACH. NO REQUESTS.
--- NOTE | 2024-07-06 18:16 | NUR ---
PATIENT IN BED WATCHING TV AT THIS TIME. VITALS AND I&O'S DONE AND CHARTED. CALL LIGHT IN REACH. NO FURTHER NEEDS AT THIS TIME.
--- NOTE | 2024-07-06 19:24 | NUR ---
REPORT RECIEVED FROM DAY SHIFT RN. PATIENT RESTING IN CHAIR WITH VISITORS IN ROOM. PATIENT DENIES NEEDS AT THIS TIME. CALL LIGHT IN REACH.
--- NOTE | 2024-07-06 20:55 | NUR ---
PATIENT RESTING IN BED. VS AND I&Os OBTAINED AND RECORDED. IV FLUSHES WNL. PATIENT REPORTS 8/10 RIGHT UPPER TOOTH PAIN. PRN PAIN MEDICATION ADMINSITERED PER PATIENT REQUEST. ASSESSMENT COMPLETE. PATIENT DENIES FURTHER NEEDS AT THIS TIME. CALL LIGHT IN REACH.
--- NOTE | 2024-07-06 21:06 | NUR ---
THIS RN CALLED MD REGARDING PATIENT STATING HE FEELS LIKE HE WILL BE UNABLE TO SLEEP TONIGHT AND ASKING FOR SLEEP MEDICATION. NEW ORDERS RECIEVED. VERIFIED USING REPEATBACK METHOD.
[2024-07-06] MEDS ORDERED: MELATONIN 3 MG TAB PO PRN (21:15)
[2024-07-06] MEDS ORDERED: TRAZODONE HCL 50 MG TAB PO PRN (21:15)
--- NOTE | 2024-07-06 23:02 | NUR ---
PATIENT RESTING IN BED ON BACK WITH EYES CLOSED. RESPIRATIONS EVEN AND UNLABORED. CALL LIGHT IN REACH.
[2024-07-07] VITALS (9 sets, daily range): BP systolic 149–166; BP diastolic 73–96
--- NOTE | 2024-07-07 00:42 | NUR ---
PATIENT RESTING IN BED ON BACK WITH EYES CLOSED. RESPIRATIONS EVEN AND UNLABORED. CALL LIGHT IN REACH.
--- NOTE | 2024-07-07 01:42 | NUR ---
REPORT RECEIVED FROM GAUDENCIO GONZALES, ASSUMED CARE OF pt. CHECKED ON pt. RESTING IN BED WITH EYES CLOSED, BREATHING UNLABORED. NO DISTRESS NOTED.
--- NOTE | 2024-07-07 05:08 | NUR ---
CALL LIGHT ANSWERED. pt AWAKE, WATCHING TV. DENIES ANY PAIN. REQUESTS COFFEE, PROVIDED PER REQUEST. ICE WATER REFILLED. VSS. CALL LIGHT IN REACH.
[2024-07-07 05:33] LABS: BASOPHILS 1.8 % (0-2); EOSINOPHILS 4.1 % (0-6); HEMATOCRIT 45.4 % (35.0-50.0); LYMPHOCYTES 19.3 % (24-44); MCH 31.2 (27-36); MCV 94.5 fl (81-99); MONOCYTES 11.4 % (0-12); NEUTROPHILS 63.4 % (39-80); PLATELET COUNT 388 K/uL (140-440); RBC 4.81 M/ul (4.3-5.7); RDW 14.7 (10.5-15.0)
[2024-07-07 05:43] LABS: ANION GAP 12.8 (7-21); BUN/CREATININE RATIO 19.31 (6.0-28.6); CREATININE, SERUM 1.45 mg/dL (0.70-1.30); MAGNESIUM 2.1 mg/dL (1.8-2.4); POTASSIUM 4.8 mmol/L (3.5-5.1)
--- NOTE | 2024-07-07 07:45 | NUR ---
PT ASSESSMENT COMPLETE. PT DENIES PAIN AT THIS TIMEM. REINFORCED NEED FOR PT TO USE CANE WHEN AMBULATING TO RESTROOM, PT AGREED. CALL LIGHT WITHIN REACH. NO REQUESTS AT THIS TIME.
--- NOTE | 2024-07-07 08:00 | NUR ---
Spoke with Irish at Dr. Mcfarland's office. As far a dental extractions, the maradiaga is the same in the OR at the bedside. The first xray is $32 and each additional is $27. I will update admin.
--- NOTE | 2024-07-07 08:17 | NUR ---
BROUGHT PATIENT A LEMON AND WILTON SODA. ALSO A WARM WASH CLOTH AND A HAND TOWEL.
--- NOTE | 2024-07-07 08:20 | NUR ---
PATIENT EATING HIS BREAKFAST.
--- NOTE | 2024-07-07 09:00 | NUR ---
DR DAVIS IN TO SEE PT AND DISCUSS POC.
[2024-07-07] MEDS ORDERED: POLYETHYLENE GLYCOL 3350 1 PACKET PO ONE (09:15)
--- NOTE | 2024-07-07 09:25 | NUR ---
MEDS GIVEN ORDERED. PT SITTING UP IN HIS BED WATCHING TV. AMBULATING WITH HIS CANE INDEPENDENTLY TO RESTROOM, TOLERATING WELL. NO REQUESTS.
--- NOTE | 2024-07-07 10:45 | NUR ---
PT SITTING UP IN BED WATCHING TV, CALL LIGHT WITHIN REACH.
--- NOTE | 2024-07-07 11:08 | NUR ---
WHEN I DID PATIENT'S MORNING VITALS HE WAS SITTING IN HIS CHAIR. WHEN I WENT BACK TO CHECK ON HIM PATIENT WAS IN HIS BED SLEEPING.
--- NOTE | 2024-07-07 11:40 | NUR ---
Attempted to see pt x 2. He has been sleeping. I was able to speak with Shyanne Claros this am and give update. I received a a treatment case form from Irish at the office. It is a check off sheet to show what services Dr. Mcfarland completes and the cost for each.
--- NOTE | 2024-07-07 12:13 | NUR ---
PT SITTING UP IN BED WATCHING TV. CALL LIGHT WITHIN REACH, NO REQUESTS AT THIS TIME.
--- NOTE | 2024-07-07 13:37 | NUR ---
PT NOT AVIALABLE FOR VISIT. PROVIDED PRAYER.
--- NOTE | 2024-07-07 13:50 | NUR ---
PT'S OLD IV DC'D DUE TO LEAKING, CATHETER INTACT AND DRESSING APPLIED. NEW IV PLACED TO R) FOREARM, PT TOLERATED WELL. PT SITTING UP IN BED WATCHING TV, CALL LIGHT WITHIN REACH.
--- NOTE | 2024-07-07 14:10 | NUR ---
PT UP AMBULATING IN HALLS WITH PT.
--- NOTE | 2024-07-07 15:31 | NUR ---
ANSWERED PATIENT'S CALL LIGHT HE WANTED A JELLO. TOOK HIM ONE.
--- NOTE | 2024-07-07 16:55 | NUR ---
DR MAURICE AND ASSISTANTS IN FOR ORAL PROCEDURE.
--- NOTE | 2024-07-07 17:35 | NUR ---
PROCEDURE COMPLETE, PT TOLERATED WELL. STATES MOUTH IS STILL NUMB AND NO PAIN. PT IN STRUCTED TO AVOID HOT LIQUIDS, STRAWS, ANY SWISHING IN MOUTH, OR HARD FOODS. ALSO NO ALCOHOL BASED MOUTH WASH. PT HAS PACKING AND SUTURES TO SITES IN HIS MOUTH, NO BLEEDING NOTED. INSTRUCTED PT TO TELL THIS NURSE IF HE SUSPECTS BLEEDING. INSTRUCTIONS LEFT FOR PT AT BEDSIDE FROM DR. MAURICE. CALL LIGHT WITHIN REACH.
[2024-07-07] MEDS ORDERED: IBUPROFEN 600 MG TAB PO PRN (18:15)
[2024-07-07] MEDS ORDERED: ACETAMINOPHEN 325 MG TAB PO PRN (18:15)
--- NOTE | 2024-07-07 18:37 | NUR ---
IBUPROFEN GIVEN ORDERED FOR PAIN TO R) UPPER JAW. PT TOLERATING COLD, SOFT LIQUIDS WELL. TEACHING REINFORCED. CALL LIGHT WITHIN REACH.
--- NOTE | 2024-07-07 19:47 | NUR ---
REPORT RECIEVED FROM DAY SHIFT RN. PATIENT RESTING IN BED. DENIES NEEDS AT THIS TIME. CALL LIGHT IN REACH.
--- NOTE | 2024-07-07 20:10 | NUR ---
PATIENT RESTING IN BED. SCHEDULED MEDCATION ADMINISTERED. IV FLUSHES WNL. PATIENT REPORTING 8/10 PAIN. ASSESSMENT COMPLETE. NO BLEEDING NOTED FROM RIGHT GUMS WHERE TEETH WERE PULLED. PRN PAIN MEDICATION ADMINSITERED. NO FURTHER NEEDS. CALL LIGHT IN REACH.
--- NOTE | 2024-07-07 20:17 | NUR ---
MD ON FLOOR. THIS RN UPDATED MD REGARDING PATIENTS PAIN. NEW ORDERS RECIEVED. VERIFIED USING REPEAT BACK METHOD.
[2024-07-07] MEDS ORDERED: MORPHINE SULFATE 4 MG/ML VIAL IV PRN (20:30)
--- NOTE | 2024-07-07 20:48 | NUR ---
PRN PAIN MEDICATION ADMINISTERED PER PATIENT REQUEST FOR 810 R JAW PAIN. NO FURTHER NEEDS. CALL LIGHT IN REACH.
--- NOTE | 2024-07-07 21:26 | NUR ---
PATIENT REPORTS 6/10 R JAW PAIN. PRN PAIN MEDICATION ADMINSITERED PER PATIENT REQUEST. MEDICATION TITRATED TO MAX DOSE. NO FURTHER NEEDS. CALL LIGHT IN REACH.
--- NOTE | 2024-07-07 23:08 | NUR ---
CALL LIGHT ANSWERED. SPRITE PROVIDED PER PATIENT REQUEST. PATIENT HAS NO FURTHER NEEDS. CALL LIGHT IN REACH.
--- NOTE | 2024-07-08 00:22 | NUR ---
PRN SLEEP AND PAIN MEDICATION ADMINISTERED PER PATIENT REQUEST. NO FURTHER NEEDS. CALL LIGHT IN REACH.
--- NOTE | 2024-07-08 01:25 | NUR ---
CALL LIGHT ANSWERED. PRN PAIN MEDICATION ADMINISTERED PER PATIENT REQUEST. NO FURTHER NEEDS. CALL LIGHT IN REACH.
--- NOTE | 2024-07-08 03:23 | NUR ---
PATIENT RESTING IN BED WITH EYES CLOSED. RESPIRATIONS EVEN AND UNLABORED. CALL LIGHT IN REACH.
[2024-07-08 05:12] VITALS: BP 164/90
--- NOTE | 2024-07-08 05:15 | NUR ---
CALL LIGHT ANSWERED. PATIENT REPORTS 7/10 RIGHT UPPER JAW PAIN. PRN PAIN MEDICATION ADMINISTERED PER PATIENT REQUEST. VS AND I&Os OBTAINED AND RECORDED. PATIENT DENIES FURTHER NEEDS AT THIS TIME. CALL LIGHT IN REACH.
[2024-07-08 05:16] VITALS: BP 164/90
[2024-07-08 05:33] LABS: HEMATOCRIT 44.6 % (35.0-50.0); HEMOGLOBIN 15.1 g/dL (12.0-18.0); MCH 31.7 (27-36); MCHC 33.7 g/dl (30-36); MCV 93.8 fl (81-99); PLATELET COUNT 399 K/uL (140-440); RBC 4.76 M/ul (4.3-5.7); RDW 14.3 (10.5-15.0)
[2024-07-08 05:45] LABS: ANION GAP 13.9 (7-21); BUN/CREATININE RATIO 16.77 (6.0-28.6); CALCIUM 8.9 mg/dL (8.5-10.1); CREATININE, SERUM 1.61 mg/dL (0.70-1.30); POTASSIUM 4.9 mmol/L (3.5-5.1)
[2024-07-08 05:54] LABS: BANDS, MANUAL DIFF 1; EOSINOPHILS, MANUAL DIFF 2; LYMPHOCYTES, MANUAL DIFF 29; MONOCYTES, MANUAL DIFF 7; NEUTROPHILS, MANUAL DIFF 61
--- NOTE | 2024-07-08 07:15 | NUR ---
REPORT RECEIVED FROM GAUDENCIO GONZALES. pt RESTING IN BED AWAKE. REQUESTING NICOTINE PATCH, JOSE. GAUDENCIO GONZALES GETTING PATCH FOR pt.
[2024-07-08] MEDS ORDERED: NICOTINE POLACRILEX 4 MG LOZENGE BUCCAL PRN (07:30)
[2024-07-08] MEDS ORDERED: LACTATED RINGER'S 1,000 ML IV SCH (07:45)
[2024-07-08 08:11] VITALS: BP 193/97
--- NOTE | 2024-07-08 08:23 | NUR ---
pt AWAKE, RATES PAIN 6/10 IN MOUTH, RIGHT SIDE OF FACE/JAW. PRN PAIN MEDICATION ADMINISTERED. ASSESSMENT COMPLETE. IV SITE FLUSHED WNL, IVF INFUSING ORDERED. pt EATING BREAKFAST. CALL LIGHT AND PERSONAL SUPPLIES IN REACH.
--- NOTE | 2024-07-08 09:15 | NUR ---
Spoke with Abdiaziz. He states mouth has been very sore, but is ok. We discussed REX. He does not feel he has an addiction problem. He is willing to speak with REX. He does not have a phone. He will consider following up with him. We again discussed his homelessness. He would like to go to [facility] whenever he is discharged for an eval for the [facility]. We can send him by taxi to [facility] whenever he discharges. I will contact [facility] to check when the complete evals. Per 8:30 meeting pt will not dc today due to his ONELIA.
--- NOTE | 2024-07-08 09:41 | NUR ---
PT NOT AVAILABLE FOR VISIT. PROVIDED PRAYER.
--- NOTE | 2024-07-08 10:27 | NUR ---
CALL LIGHT ANSWERED. pt RATES PAIN 05/10. PRN PAIN MEDICATION ADMINISTERED. IV SITE INFILTRATED, DC'D WNL. NEW IV STARTED LEFT FOREARM, IVF INFUSING ORDERED. PRN MORPHINE ADMINISTERED IV. URINAL EMPTIED. CALL LIGHT AND PERSONAL SUPPLIES IN REACH.
[2024-07-08 10:46] VITALS: BP 193/97
--- NOTE | 2024-07-08 11:40 | NUR ---
Notified by Rn, pt is wanting to leave and will go AMA. TO pts room. Pt appologizes, states he has to leave as he has to get his dogs. He thinks his ex will pick him up. He gave me her number and I will call her. I asked if he wants to go to [facility] today and he does. I called [facility] and they cannot do an assessment today. Next available time is Thursday. She states as long as pt arrives by 1 pm, if there is a bed available he has a chance to get in. I attempted to call his ex and there is not an answer. Returned and gave Abdiaziz the address for the [facility] [employer]. Offered him a taxi ride and he states he is going to the front to wait for his ex. He thanks everyone for the help. Pt left AMA.
[2024-07-08] MEDS ORDERED: NIFEDIPINE ER30 M1 PO (11:45)
[2024-07-08] MEDS ORDERED: HYDRALAZINE HCL10 MG PO (11:49)
--- NOTE | 2024-07-08 11:50 | NUR ---
pt OFF FLOOR AMA AFTER MD AND TRAWL NET MAKER IN ROOM. pt AMBULATORY TO FRONT DOOR WITH GURJIT, GAUDENCIO POST WITH pt. PERSONAL SUPPLIES RETURNED TO pt.
[2024-07-08] MEDS ORDERED: HYDRALAZINE HCL25 MG PO (11:51)
== END 2024-07-08 12:05 | disposition left against medical advice (07) | DRG 305 ==
LOC: ED 08:14 → MS 12:32 → CCU 12:32 → MS 07-05 20:08
PROVIDERS: Emergency Medicine; ADMIT Student in an Organized Health Care Education/Training Program; ATTEND Student in an Organized Health Care Education/Training Program
DX: I16.1 Hypertensive emergency (principal); I69.954 Hemiplegia and hemiparesis following unspecified cerebrovascular disease affecting left non-dominant side; L03.211 Cellulitis of face; I16.0 Hypertensive urgency; K02.9 Dental caries, unspecified; I10 Essential (primary) hypertension; R30.0 Dysuria; Z53.29 Procedure and treatment not carried out because of patient's decision for other reasons; F17.210 Nicotine dependence, cigarettes, uncomplicated; K59.00 Constipation, unspecified; J44.9 Chronic obstructive pulmonary disease, unspecified; Z90.81 Acquired absence of spleen; Z90.79 Acquired absence of other genital organ(s); Z90.49 Acquired absence of other specified parts of digestive tract; Z98.890 Other specified postprocedural states; Z88.0 Allergy status to penicillin; F15.10 Other stimulant abuse, uncomplicated; Z87.19 Personal history of other diseases of the digestive system; Z91.199 Patient's noncompliance with other medical treatment and regimen due to unspecified reason
CPT/HCPCS: 36415; 70450; 70496; 70498; 70553; 71045; 80048; 80053; 80307; 81001; 83735; 83880; 84484; 85025; 85610; 85730; 93005; 93010; 97110; 97162; 97166; 97530; 97535; 99285-25; A9270; A9577; J0360; J1171; J1650; J2270; J2405; J7060; J7121; Q9967

== ENCOUNTER 2025-02-05 13:39 | Emergency (ER) | payer MEDICARE, MEDICAID ==
[~2025-02-05] VITALS: Ht 172.7 cm; Wt 86.5 kg
[~2025-02-05 13:39] MED LIST changes: +AMLODIPINE BES2.5 MG PO; +ATORVASTATIN CA80 MG PO; +HYDRALAZINE HCL10 MG PO; +HYDRALAZINE HCL25 MG PO; +LISINOPRIL20 MG PO; +METOPROLOL TART25 MG PO; +NIFEDIPINE ER30 M1 PO
[2025-02-05 13:53] LABS: EOSINOPHILS 2.1 % (0.8-7.0); HEMATOCRIT 42.6 % (40.1-51.0); LYMPHOCYTES 21.1 % (21.8-53.1); MCH 29.5 PG (25.7-32.2); MCHC 32.9 g/dL (32.3-36.5); MCV 89.7 fL (79.0-92.2); MONOCYTES 11.2 % (5.3-12.2); NEUTROPHILS 64.2 % (34.0-67.9); PLATELET COUNT 390 K/uL (163-337); RBC 4.75 M/uL (4.63-6.08)
[2025-02-05 14:08] LABS: ALBUMIN 3.7 g/dL (3.4-5.0); ALBUMIN/GLOBULIN RATIO 1.03 (1.1-2.4); ANION GAP 13.8 (7-21); BILIRUBIN, TOTAL 0.4 mg/dL (0.2-1.0); BUN/CREATININE RATIO 12.05 (6.0-28.6); CREATININE, SERUM 1.41 mg/dL (0.70-1.30); PARTIAL THROMBOPLASTIN TIME 27.3 Sec (22.9-41.3); POTASSIUM 3.8 mmol/L (3.5-5.1); PROTEIN, TOTAL 7.3 g/dL (6.4-8.2); PROTIME 12.6 Sec (11.2-14.2)
[2025-02-05] MEDS ORDERED: LISINOPRIL20 MG PO (14:13)
[2025-02-05] MEDS ORDERED: CHLORTHALIDONE25 MG PO (14:13)
[2025-02-05] MEDS ORDERED: LABETALOL HCL 20 MG/4 ML VIAL IV ONE (14:30)
[2025-02-05 16:53] VITALS: BP 168/103
--- NOTE | 2025-02-05 21:39 | EKG ---
[facility] [address] [id number] Signed Normal sinus rhythm Minimal voltage criteria for LVH, may be normal variant ( Sokolow-Montoya ) Septal infarct , age undetermined Abnormal ECG When compared with ECG of 04-JUL-2024 09:04, premature atrial complexes are no longer present OK interval has increased Confirmed by Parish Sharma MD () on 02/05/2025 9:39:39 PM Electronically Signed By: PARISH SHARMA MD 02/05/25 2139 PATIENT NAME: CLARE BUCHANAN Electrocardiogram DATE OF : 63 PHYSICIAN: PARISH SHARMA MD REPORT #: [id number] REPORT IS CONFIDENTIAL AND NOT TO BE RELEASED WITHOUT AUTHORIZATION
== END 2025-02-05 16:53 | disposition home or self-care (01) ==
LOC: ED 13:39
PROVIDERS: Emergency Medicine
DX: T67.5XXA Heat exhaustion, unspecified, initial encounter (principal); R55 Syncope and collapse; R53.1 Weakness; F17.200 Nicotine dependence, unspecified, uncomplicated; I10 Essential (primary) hypertension; J44.9 Chronic obstructive pulmonary disease, unspecified; Z79.899 Other long term (current) drug therapy
CPT/HCPCS: 36415; 70450; 70496; 70498; 71045; 80053; 85025; 85610; 85730; 93005; 93010; 99285-25; Q9967